=== PATIENT | male | born 1945 | race Hispanic/Latino ===

== ENCOUNTER 2021-11-21 16:14 | Emergency (ER) | payer MEDICARE ==
[~2021-11-21] VITALS: Ht 177.8 cm; Wt 92.5 kg
[2021-11-21 16:44] LABS: BASOPHILS % (AUTO) 0.2 % (0.0-5.0); EOSINOPHILS % (AUTO) 0.2 % (0.0-8.0); HEMATOCRIT 41.5 % (42-54); LYMPHOCYTES % (AUTO) 16.5 % (21.0-51.0); MEAN CORPUSCULAR HEMOGLOBIN 29.8 pg (27.0-33.0); MEAN CORPUSCULAR VOLUME 92.8 fL (79-99); MONOCYTES % (AUTO) 6.7 % (3.0-13.0); PLATELET COUNT (AUTO) 250 K/uL (130-400); RED BLOOD CELL COUNT(AUTO) 4.47 MIL/uL (4.50-6.20); RED CELL DISTRIBUTION WIDTH 14.1 % (11.0-15.5); WHITE BLOOD COUNT (AUTO) 8.4 K/uL (4.8-10.8)
[2021-11-21 16:56] LABS: POTASSIUM 4.1 mmol/L (3.5-5.1)
[2021-11-21 16:57] LABS: INR 0.97 (0.85-1.15); PROTHROMBIN TIME 10.6 SEC (9.6-11.6)
[2021-11-21 16:59] LABS: PARTIAL THROMBOPLASTIN TIME 30.6 SEC (26.3-35.5)
[2021-11-21] MEDS ORDERED: BENZOCAINE/LANOLIN/ALOE VERA 60 ML AEROSOL TP PRN (17:00)
[2021-11-21] MEDS ORDERED: KETOROLAC 15MG/ML VIAL (15MG/ML) IV ONE (17:00)
[2021-11-21] MEDS ORDERED: CEFTRIAXONE 1G VIAL IVP ONE (17:00)
[2021-11-21 17:05] LABS: ALBUMIN 3.9 g/dL (3.5-5.0); BILIRUBIN,TOTAL 0.7 mg/dL (0.2-1.0); TOTAL PROTEIN, SERUM 7.6 g/dL (6.0-8.3)
[2021-11-21 17:14] VITALS: BP 150/89
[2021-11-21] MEDS ORDERED: CEPH500B PO (17:42)
[2021-11-21] MEDS ORDERED: NAPR-1196 PO (17:42)
== END 2021-11-21 17:49 | disposition home or self-care (01) ==
LOC: EDH 16:14
DX: T25.221A Burn of second degree of right foot, initial encounter (principal); E03.9 Hypothyroidism, unspecified; E78.00 Pure hypercholesterolemia, unspecified; I49.1 Atrial premature depolarization; Z79.1 Long term (current) use of non-steroidal anti-inflammatories (NSAID); Z88.0 Allergy status to penicillin; T31.0 Burns involving less than 10% of body surface; X10.1XXA Contact with hot food, initial encounter; Y93.89 Activity, other specified; Y92.89 Other specified places as the place of occurrence of the external cause; Y99.8 Other external cause status
CPT/HCPCS: 36415; 71045; 80053; 82550; 83605; 84484; 85025; 85610; 85730; 87040 ×2; 93005; 96374; 96375; 99285; J0696; J1885

== ENCOUNTER 2025-04-16 07:57 | Day surgery (SDC) | payer MEDICARE ==
--- NOTE | 2025-04-12 11:34 | EKG ---
[facility] Test Date: 2025-04-12 Test Time: 11:18:15 Pat Name: AXEL JIMENEZ Department: [facility] Room: Gender: M Predatory Animal Exterminator: [id number] : 1945 Requested By: ISAURA WRIGHT Order Number: [id number] Reading MD: Kelly Douglas Measurements Intervals [place] Rate: 63 P: 0 LA: 85 QRS: -19 QRSD: 125 T: 50 QT: 472 QTc: 484 Interpretive Statements Sinus rhythm Atrial premature complex Nonspecific intraventricular conduction delay Compared to ECG 11/21/2021 16:45:30 Intraventricular conduction delay now present Aberrant conduction of supraventricular beat(s) no longer present Electronically Signed On 04-12-2025 13:12:41 CDT by Kelly Douglas Please click the below link to view image of tracing.
[2025-04-12 12:06] VITALS: BP 153/78; PULSE 50; RESP 18; TEMP 98.1
--- NOTE | 2025-04-12 13:36 | NUR ---
REPORT DR WATSON REVIEWED EKG. OK TO PROCEED
[2025-04-16] VITALS (20 sets, daily range): BP systolic 118–155; BP diastolic 61–87; PULSE 56–72; RESP 16–19; TEMP 97–97.8
[~2025-04-16] VITALS: Ht 177.8 cm; Wt 94.2 kg
[~2025-04-16 07:57] MED LIST: AMLO-257 PO; LEVO50CA5 PO; LOSA100T59 PO; METF-444 PO; PRAV20TA59 PO
[2025-04-16] MEDS ORDERED: CLINDAMYCIN IVPB 900MG/50ML 50 ML IV ONE (09:45)
[2025-04-16] MEDS ORDERED: MIDAZOLAM HCL 1 MG/ML 2ML VIAL ONE (09:50)
[2025-04-16] MEDS ORDERED: GLYCOPYRROLATE 0.2 MG/ML 5 ML VIAL ONE (11:32)
--- NOTE | 2025-04-16 11:32 | OP ---
Operative Note: DATE OF PROCEDURE: 04/16/25 SURGEON: ISAURA WRIGHT MD PAPER SPOOLER: [] ANESTHESIA: [] General ANESTHESIOLOGIST/SURVEY ENGINEER: [] PREOPERATIVE DIAGNOSIS: [] Left inguinal hernia POSTOPERATIVE DIAGNOSIS: [] The same SYNOPSIS: [] PROCEDURE: [] Open repair of left inguinal hernia with mesh ESTIMATED BLOOD LOSS: [] Minimal INDICATIONS: [] Incarcerated large inguinal scrotal hernia DESCRIPTION OF PROCEDURE: [] With the patient under general anesthesia I did a left groin incision. Using cautery and blunt dissection I was able to expose the external oblique aponeurosis. I opened it and immediately identified the inguinal ligament and reduced a large inguinal scrotal hernia. Using blunt dissection I was able to separate the cord structures and identified the hernia sac. The hernia sac was opened and then I just closed it with a 2-0 Vicryl in tied. I transected and I just placed another suture in the stump of the hernia sac. I then placed a keyhole mesh large and anchored it to the inguinal ligament continuous into the transversalis conjoined tendon in the other side. I created a new internal ring with the mesh. After this was done I placed a testicle disposition and I irrigated and confirmed hemostasis. I closed the external oblique aponeurosis with 3-0 Vicryl. I then placed a few interrupted Vicryl sutures to subcu and the skin was closed with 4-0 Monocryl and Dermabond. The patient had a block before the procedure by anesthesia. Using the hernia sac to pathology ISAURA WRIGHT MD Apr 16, 2025 11:32
[2025-04-16] MEDS ORDERED: NEOSTIGMINE METHYLSULFATE 1MG/ML IV ONE (11:33)
--- NOTE | 2025-04-16 12:52 | NUR ---
dressing: dermabond to left inguinal area dry/intact. no redness/swelling noted to surrounding area.
--- NOTE | 2025-04-16 13:30 | NUR ---
URINARY: VOIDED 200 CC DARK YELLOW URINE WITHOUT DIFFICULTY IN URINAL.
--- NOTE | 2025-04-16 14:32 | NUR ---
dressing: dermabond to left inguinal area remains dry/intact. no redness/swelling noted to surrounding area.
== END 2025-04-16 14:32 | disposition home or self-care (01) ==
LOC: DAH 07:57
PROVIDERS: ATTEND Surgery
DX: K40.30 Unilateral inguinal hernia, with obstruction, without gangrene, not specified as recurrent (principal); I10 Essential (primary) hypertension; E03.9 Hypothyroidism, unspecified; E78.5 Hyperlipidemia, unspecified; Z82.49 Family history of ischemic heart disease and other diseases of the circulatory system; Z79.890 Hormone replacement therapy; Z88.0 Allergy status to penicillin; Z79.899 Other long term (current) drug therapy; Z98.890 Other specified postprocedural states
CPT/HCPCS: 93005; 64425; 49507; 82948 ×2; 88302; 76942; A4223 ×2; A4663; J7030; J3010 ×3; J1100; J0665; J3490 ×4; J2250; J2704; J2405 ×2; J2710; J2795 ×2; A4215; A4213; A4222; A4221; A4216; A4450; C1781

== ENCOUNTER → 2025-05-17 | Outpatient (CLI) | payer MEDICARE ==
--- NOTE | 2025-05-17 23:55 | HMCIMG ---
EXAM: CT Pelvis, without IV contrast CLINICAL HISTORY: Pelvic and perineal pain. TECHNIQUE: Axial images were acquired through the pelvis without IV contrast. Reformatted images were reviewed. Dose reduction technique was used including one or more of the following: automated exposure control, adjustment of mA and kV according to patient size, and/or iterative reconstruction. Total exam DLP is 342. CONTRAST: Without. COMPARISON: None provided. 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 There is grade I anterolisthesis of L4 over L5. Degenerative changes are seen in the spine. JOINTS: No dislocation. The joint spaces are normal. SOFT TISSUES: There is a fat containing umbilical hernia with a defect measuring 1 cm in width. There is a large left sided inguinal hernia containing fluid as well as fat with associated stranding. Overlying subcutaneous edema is present, extending toward the left hemiscrotum. The loculated fluid collection in the left sided hernia sac measures approximately 8.7 x 6.9 x 8.3 cm with possible presence of septations in it. Further evaluation is limited due to lack of intravenous contrast. Perineum, the perianal, the gluteal regions are unremarkable. KIDNEYS, URETERS, AND BLADDER: Bilateral renal calculi are present, the largest in the visualized extent in the lower pole of the left kidney measuring 8 mm with a HU value of 137. There is mild prostatomegaly. 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 VASCULATURE: The abdominal aorta demonstrates atheromatous calcification without aneurysm or dissection in the visualized extent. STOMACH AND BOWEL: No specific findings mentioned. APPENDIX: No specific findings mentioned. IMPRESSION: 1. Large left sided inguinal hernia containing fluid and fat with overlying, surrounding inflammatory changes. Incarceration is not excluded. Recommend clinical correlation and follow up. 2. Loculated fluid collection within the hernia sac measuring approximately 8.7 x 6.9 x 8.3 cm with possible septations; evaluation limited without IV contrast. /[place]
== END | disposition home or self-care (01) ==
LOC: RAH 13:28
PROVIDERS: ATTEND Surgery
DX: K40.90 Unilateral inguinal hernia, without obstruction or gangrene, not specified as recurrent (principal); N20.0 Calculus of kidney; N40.0 Benign prostatic hyperplasia without lower urinary tract symptoms; R10.20 Pelvic and perineal pain unspecified side; I70.0 Atherosclerosis of aorta; M86.9 Osteomyelitis, unspecified; M47.816 Spondylosis without myelopathy or radiculopathy, lumbar region; M43.16 Spondylolisthesis, lumbar region; R60.0 Localized edema
CPT/HCPCS: 72192

== ENCOUNTER 2025-06-04 07:35 | Day surgery (SDC) | payer MEDICARE ==
[2025-05-29 10:17] LABS: IMMATURE GRANULOCYTE ABSOLUTE 0.02 K/uL (0-1); NUCLEATED RED BLOOD CELLS 0.0 % (0.0-0.19); PLATELET COUNT (AUTO) 229 K/uL (130-400); RED BLOOD CELL COUNT(AUTO) 4.12 MIL/uL (4.50-6.20); RED CELL DISTRIBUTION WIDTH 13.5 % (11.0-15.5); WHITE BLOOD COUNT (AUTO) 5.7 K/uL (4.8-10.8)
[2025-05-29 10:21] VITALS: BP 155/75; PULSE 54; RESP 14; TEMP 97.7
[2025-05-29 10:28] LABS: CREATININE 0.8 mg/dL (0.5-1.3); GLOMERULAR FILTR. RATE CALC 91.0 mL/min (>90); GLUCOSE,RANDOM 111.0 mg/dL (70-105); SODIUM SERUM 136.0 mmol/L (136-145); UREA NITROGEN, BLOOD 18.0 mg/dL (7-18)
[2025-05-29 10:29] LABS: INR 1.04 (0.85-1.15)
--- NOTE | 2025-05-29 10:46 | EKG ---
[facility] Test Date: 2025-05-29 Test Time: 10:08:34 Pat Name: AXEL JIMENEZ Department: [facility] Room: Gender: M Copyright Manager: [id number] : 1945 Requested By: ISAURA WRIGHT Order Number: [id number] Reading MD: Humphrey Oleary Measurements Intervals [employer] Rate: 53 P: 0 TX: 282 QRS: -40 QRSD: 132 T: 1 QT: 489 QTc: 461 Interpretive Statements atrial fibrillation with slow ventricular response Prolonged TX interval Nonspecific IVCD with LAD Left ventricular hypertrophy Compared to ECG 04/12/2025 11:18:15 First degree AV block now present Left ventricular hypertrophy now present Sinus rhythm no longer present Atrial premature complex(es) no longer present Electronically Signed On 05-29-2025 21:19:09 TOBACCO PREVENTION HEALTH EDUCATOR by Humphrey Oleary Please click the below link to view image of tracing.
--- NOTE | 2025-05-29 11:49 | NUR ---
REPORT REPORTED EKG TO DR SCHOFIELD AND ALSO SENT OLD EKG FROM APRIL 2025. OK TO PROCEED
[~2025-06-04] VITALS: Ht 177.8 cm; Wt 90.9 kg
[2025-06-04] VITALS (20 sets, daily range): BP systolic 123–157; BP diastolic 60–88; PULSE 53–68; RESP 14–18; TEMP 97.2–97.3
[2025-06-04] MEDS ORDERED: 0.9%NACL 1000ML 1,000 ML IV ONE (08:04)
[2025-06-04] MEDS ORDERED: CLINDAMYCIN IVPB 900MG/50ML 50 ML IV ONE (08:04)
[2025-06-04] MEDS ORDERED: FAMOTIDINE 20MG VIAL IV ONE (08:18)
[2025-06-04] MEDS ORDERED: MIDAZOLAM HCL 1 MG/ML 2ML VIAL ONE (08:24)
[2025-06-04] MEDS ORDERED: LIDOCAINE PF 100MG/5ML (2%) SYRINGE 5ML ONE (08:24)
[2025-06-04] MEDS ORDERED: NEOSTIGMINE METHYLSULFATE 1MG/ML IV ONE (08:58)
[2025-06-04] MEDS ORDERED: GLYCOPYRROLATE 0.2 MG/ML 5 ML VIAL ONE (08:58)
[2025-06-04] MEDS: CLINDAMYCIN 900MG/6ML INJ IJ ONE (09:00)
[2025-06-04] MEDS ORDERED: PROMETHAZINE HCL 25 MG/ML 1ML AMPULE IM PRN (09:30)
--- NOTE | 2025-06-04 10:20 | OP ---
Operative Note: DATE OF PROCEDURE: 06/04/25 SURGEON: ISAURA WRIGHT MD RN ORTHOPAEDICS: [] ANESTHESIA: [] General ANESTHESIOLOGIST/TICKET AGENT: [] PREOPERATIVE DIAGNOSIS: [] Recurrent left inguinal hernia Fluid collection in the left groin POSTOPERATIVE DIAGNOSIS: [] The same Seroma of the left groin SYNOPSIS: [] PROCEDURE: [] Robotic repair of left inguinal hernia Drainage of seroma in the left groin ESTIMATED BLOOD LOSS: [] Minimal INDICATIONS: [] DESCRIPTION OF PROCEDURE: [] With the patient prepped in usual fashion and a Hernandez catheter placed we inserted the Veress needle in the left upper quadrant abdomen insufflated. Supraumbilical incision was created and a millimeter da Yovanny trocar was inserted. Under direct vision I remove the needle and I placed 2 da Yovanny trochars 1 in each the side of the abdomen. Then we placed the patient in [facility] and I docked the robot. I went to the console and observe a a left inguinal hernia. Using cautery I scored the peritoneum and I brought him down bluntly. I exposed the Chidi's ligament and the indirect area I reduce a large hernia sac preserving the spermatic cords and visualizing the vas deferens and spermatic cords. The hernia sac was the residual sac from a previous open incisional hernia for a large inguinal scrotal hernia. The hernia sac was divided. The cord structures were preserved. After observing the myopectineal line and the Chidi's ligament I placed a 3 D MAX MId mid mesh on the left side. This was a large one. I placed it over the Chidi's ligament covering couple centimeters below and the indirect space. The sac with the lipoma was placed over the mesh. I then closed the peritoneum with a 2 oh V-Loc. No anchoring of the mesh was necessary. We did a closure continues and dropped the pressure to 8 cm. After this was done I remove the needle and I remove all the trochars under direct vision. The skin was closed with 4-0 Monocryl and Dermabond. We placed 20 cc The conservative into the left groin swelling. An incision was done about 6 cm. Using cautery I opened the organized wall for the seroma. Significant amount of fluid came out under pressure. This was drained and I removed part of the hernia sac that was becoming part of the wall this organized seroma. After able to drain all this fluid I decided to place a Desiree in that area and anchored with nylon to skin. The incisions were closed with a 3-0 Vicryl and then 3-0 silk interrupted. We placed local anesthesia in that decision ISAURA WRIGHT MD Jun 04, 2025 10:20
--- NOTE | 2025-06-04 11:25 | NUR ---
dressing: dressing to left lower inguinal area with moderate amount of reddish drainage. changed on arrival using aseptic technique
--- NOTE | 2025-06-04 12:30 | NUR ---
dressing: large amount of bloody drainage to left inguinal area after patient standing up. blood clots noted to inside dressing. changed dressing using abd. pad and 4x4's. dr. deluca notified and will come talk to patient
--- NOTE | 2025-06-04 12:40 | NUR ---
ASSESSMENT: DR. WRIGHT HERE TO ASSESS AND TALK TO PATIENT REGARDING DRAINAGE. PT WITH KENDALL DRAIN IN PLACE. OK TO DISCHARGE HOME
== END 2025-06-04 12:50 | disposition home or self-care (01) ==
LOC: DAH 07:35
PROVIDERS: ATTEND Surgery
DX: K40.91 Unilateral inguinal hernia, without obstruction or gangrene, recurrent (principal); I10 Essential (primary) hypertension; E03.9 Hypothyroidism, unspecified; E78.5 Hyperlipidemia, unspecified; Z82.3 Family history of stroke; Z88.0 Allergy status to penicillin; Z98.890 Other specified postprocedural states
CPT/HCPCS: 80048; 85025; 85610; 85730; 36415; 93005; 10140; 49651; 82948; 88302; J1100; A4223 ×2; A4600; A6260; A4663; J7030 ×2; A4344; J1308; J3010 ×2; J2270; J0665 ×3; J3490 ×4; J2003; J2250; J2704; J2405; J2710; A4930 ×3; C1781; A4215; A6402; A4213; A4222; A4221; A4216; A4450